=== PATIENT | female | born 1950 | race Caucasian/White ===

== ENCOUNTER → 2021-12-17 | Outpatient (CLI) | payer MEDICARE, OTHER, SELFPAY ==
[2021-12-17 11:19] LABS: Absolute Lymphocyte Count 1.35 X10^3/uL (0.83-4.51); Absolute Neutrophil Count 4.4 X10^3/uL (2.0-7.7); Basophil# 0.06 X10^3/uL; Basophil% 0.9 % (0-1); Eosinophils% 2.9 % (0-5); Hematocrit 45.1 % (37-47); Hemoglobin 15.2 g/dL (12.0-15.0); Lymphocyte # 1.35 X10^3/ul (0.83-4.51); Lymphocyte % 19.9 % (19-41); Mean Corp Hgb Conc 33.7 g/dL (32-36); Mean Corpuscular Hgb 31.7 pg (27.0-32.0); Mean Corpuscular Volume 94.2 fL (81-99); Mean Platelet Vol. 10.8 fl (6.2-12.0); Monocyte# 0.77 X10^3/uL; Monocyte% 11.3 % (0-10); NRBC Flagged by Analyzer 0 % (0-5); Neutrophil # 4.39 X10^3/uL (2.7-7.7); Neutrophil % 64.7 % (47-70); Platelet Count 218 K/mm3 (150-450); RBC Distribution Width CV 13.1 % (11.6-14.6); RBC Distribution Width SD 45.4 fl (35.1-43.9); Red Blood Count 4.79 M/mm3 (4.2-5.4); White Blood Count 6.8 K/mm3 (4.4-11.0)
[2021-12-17 12:08] LABS: Anion Gap 4 (5-15); BUN 21 mg/dL (7-18); BUN/Creat Ratio 19.8 RATIO (10-20); Calcium,Total 9.5 mg/dL (8.5-10.1); Chloride 109 mmol/L (98-107); Creatinine, Serum 1.06 mg/dL (0.55-1.02); EST Glomerular Filtration Rate 54 mL/min (>60); Est Glom Filt Rate - Afr Amer 65 mL/min (>60); Glucose 78 mg/dL (74-106); Magnesium 2.3 mg/dL (1.6-2.6); Potassium 4.3 mmol/L (3.5-5.1); Sodium Level 142 mmol/L (136-145); Thyroid Stim Hormone (TSH) 0.94 uIU/mL (0.358-3.74)
== END | disposition home or self-care (01) ==
PROVIDERS: Referring Provider Internal Medicine Cardiovascular Disease; Visit Provider Internal Medicine Cardiovascular Disease
DX: I47.2 Ventricular tachycardia (principal); Q24.8 Other specified congenital malformations of heart; Q24.5 Malformation of coronary vessels; Q21.0 Ventricular septal defect; E78.2 Mixed hyperlipidemia; Z87.74 Personal history of (corrected) congenital malformations of heart and circulatory system
CPT/HCPCS: 36415; 80048; 83735; 84443; 85025

== ENCOUNTER → 2021-12-25 | Outpatient (CLI) | payer MEDICARE, OTHER, SELFPAY ==
--- NOTE | 2021-12-25 10:43 | ECHOD_ITS ---
Reason For Study: Congenital malformations Procedure This was a 2D Doppler, Color Flow transthoracic echocardiogram. The exam was of adequate technical quality. Exam performed in department. Left Ventricle Normal LV size. Left ventricular systolic function is normal. The estimated ejection fraction is 65 %. No evidence for diastolic dysfunction. No regional wall motion abnormalities noted. Right Ventricle Normal RV size. Normal systolic function. Atria Normal left atrium. Normal right atrium. No doppler evidence for ASD. Mitral Valve There is no mitral annular calcification. Mild diffuse mitral valve thickening. Mild (1+) eccentric mitral valve insufficiency. Tricuspid Valve Normal tricuspid valve. Mild to moderate (1-2+) tricuspid valve insufficiency. Right ventricular systolic pressure estimated to be 27 mmHg. Aortic Valve Trisinus/trileaflet aortic valve. Mild focal aortic valve thickening. Mild-Moderate (1-2+) aortic valve insufficiency. Pulmonic Valve The pulmonic valve is not well visualized. Mild (1+) eccentric pulmonic valve insufficiency. Great Vessels Normal sized aortic root. Pericardium/Pleural No pericardial effusion. MMode/2D Measurements & Calculations LVIDd: 4.2 cm IVSd: 1.5 cm Ao root diam: 3.1 cm LVIDs: 2.9 cm LVPWd: 1.4 cm RVDd: 3.4 cm FS: 31.9 % LAV(MOD-bp): 45.5 ml LVAd ap4: 23.1 cm2 LVAd ap2: 25.5 cm2 LAV(MOD-bp) Indexed: 26.4 ml/m2 LVLd ap4: 7.2 cm LVLd ap2: 6.9 cm LAV(MOD-sp2): 36.7 ml EDV(MOD-sp4): 62.2 ml EDV(MOD-sp2): 81.5 ml LAV(MOD-sp4): 56.8 ml EDV(sp4-el): 62.7 ml EDV(sp2-el): 79.7 ml LVAs ap4: 12.5 cm2 LVAs ap2: 14.0 cm2 LVLs ap4: 6.1 cm LVLs ap2: 5.9 cm ESV(MOD-sp4): 21.5 ml ESV(MOD-sp2): 29.7 ml ESV(sp4-el): 21.7 ml ESV(sp2-el): 28.5 ml EF(MOD-sp4): 65.5 % EF(MOD-sp2): 63.6 % EF(sp4-el): 65.4 % SV(MOD-sp4): 40.7 ml SV(MOD-sp2): 51.8 ml SV(sp4-el): 41.0 ml LA dimension(2D): 4.3 cm LA A4 area: 19.7 cm2 RA A4 area: 17.5 cm2 Time Measurements MV dec time: 0.24 sec Doppler Measurements & Calculations MV E max ryder: 77.3 cm/sec Lat Peak E' Ryder: 6.8 cm/sec Med Peak E' Ryder: 6.5 cm/sec MV A max ryder: 87.8 cm/sec E/E' lat: 11.4 E/E' med: 11.8 MV E/A: 0.88 MV dec slope: 322.7 cm/sec2 Ao V2 max: 129.5 cm/sec AI max ryder: 470.8 cm/sec Ao max P.7 mmHg AI max P.8 mmHg Ao V2 mean: 90.8 cm/sec AI dec slope: 232.3 cm/sec2 Ao mean P.7 mmHg AI P1/2t: 593.7 msec Ao V2 VTI: 35.9 cm LV V1 max: 96.9 cm/sec PA V2 max: 155.7 cm/sec TR max ryder: 240.6 cm/sec LV V1 max P.8 mmHg PA V2 mean: 104.0 cm/sec TR max P.7 mmHg LV V1 mean P.0 mmHg LV V1 mean: 67.5 cm/sec LV V1 VTI: 24.7 cm ECHO/Echo Complete Interpretation Summary Left ventricular systolic function is normal. The estimated ejection fraction is 65 %. Mild diffuse mitral valve thickening. Mild (1+) eccentric mitral valve insufficiency. Mild to moderate (1-2+) tricuspid valve insufficiency. Mild focal aortic valve thickening. Mild-Moderate (1-2+) aortic valve insufficiency. Mild (1+) eccentric pulmonic valve insufficiency. Right ventricular systolic pressure estimated to be 27 mmHg. No evidence for diastolic dysfunction. Comment: Based upon the 2D echocardiographic and color-flow Doppler information obtained there appears to be a residual perimembranous ventricular septal defect (approximatel y 0.2cm-0.3cm) present. Ordering Physician: Srinath Bergman Referring Physician: Srinath Bergman Performed By: Ambika Donahue, TITO
== END | disposition home or self-care (01) ==
LOC: CVS 10:41
PROVIDERS: Referring Provider Internal Medicine Cardiovascular Disease; Visit Provider Internal Medicine Cardiovascular Disease
DX: I47.2 Ventricular tachycardia (principal); E78.2 Mixed hyperlipidemia; Q24.8 Other specified congenital malformations of heart; Q24.5 Malformation of coronary vessels; Q21.0 Ventricular septal defect; Z87.74 Personal history of (corrected) congenital malformations of heart and circulatory system
CPT/HCPCS: 93306